=== PATIENT | male | born 1995 | race Caucasian/White ===

== ENCOUNTER 2016-09-03 19:08 | Observation (INO) | payer OTHER ==
[~2016-09-03] VITALS: Ht 175.3 cm; Wt 75.0 kg
[2016-09-03 21:17] LABS: BASO % 0.3 % (0.0-2.0); EOS % 0.2 % (0-4.0); GRAN # 10.7 (1.4-6.5); GRAN % 78.2 % (42.2-75.2); HEMATOCRIT 47.1 % (36.0-47.0); HEMOGLOBIN 16.4 g/dl (12.5-16.1); LYMPH # 1.3 (1.2-3.4); LYMPH % 9.4 % (20.0-51.0); MEAN CELL VOLUME 86 fl (80.0-95.0); MEAN CORPUSCULAR HEMOGLOBIN 30 pg (26.0-32.0); MEAN CORPUSCULAR HGB CONC 35 g/dl (33.0-37.0); MEAN PLATELET VOLUME 9.9 fl (7.4-10.4); MONO # 1.6 (0.1-0.6); MONO % 11.7 % (1.7-9.3); PLATELET COUNT 262 K/mm3 (130-400); RED BLOOD COUNT 5.47 M/mm3 (4.20-5.60); REDCELL DISTRIBUTION WIDTH-CV 11.9 % (11.5-14.5); WHITE BLOOD COUNT 13.7 K/mm3 (4.8-10.8)
[2016-09-03 21:19] LABS: PH 7 (5-8); SQUAMOUS EPITHELIAL None Seen /hpf; URINE APPEARANCE Clear; URINE BACTERIA None Seen /hpf; URINE BILIRUBIN Negative (NEGATIVE); URINE BLOOD Negative (NEGATIVE); URINE COLOR Straw; URINE GLUCOSE Negative (NEGATIVE); URINE KETONE Negative (NEGATIVE); URINE RBC None Seen /hpf; URINE UROBILINOGEN Negative (NEGATIVE); URINE WBC 0-2 /hpf
[2016-09-03 21:41] LABS: ADJUSTED CALCIUM 9.3 mg/dL (8.4-10.2); ALBUMIN 4.9 gm/dL (3.5-5.0); BILIRUBIN,TOTAL 1.9 mg/dL (0.0-1.0); CREATININE, serum 0.96 mg/dL (0.66-1.25); POTASSIUM 4.1 mmol/L (3.4-5.0); TOTAL PROTEIN 8.3 gm/dL (6.4-8.2)
[2016-09-03 23:04] VITALS: BP 131/72; PULSE 86; TEMP 99.1
[2016-09-04] VITALS (9 sets, daily range): BP systolic 102–136; BP diastolic 57–83; PULSE 59–96; TEMP 97.6–98.2
== END 2016-09-04 14:00 | disposition home or self-care (01) ==
LOC: COL.ER 19:08 → SDCO 21:55 → SURG 21:55 → SDCO 21:56 → SURG 21:56 → SDCO 09-04 14:00 → SURG 09-04 14:00
PROVIDERS: Emergency Medicine
DX: K35.80 Unspecified acute appendicitis (principal)
CPT/HCPCS: OP; G0378; J1100; J1170; J1885; J2405; J2543; J2704; J7030; J7050; J7120; Q9967

== ENCOUNTER 2017-08-31 22:10 | Emergency (ER) | payer OTHER ==
[~2017-08-31] VITALS: Ht 175.3 cm; Wt 77.3 kg
[2017-08-31 22:15] VITALS: TEMP 98.4
[2017-08-31] MEDS ORDERED: ZITHROMAX 250M250 MG PO (23:44)
[2017-08-31] MEDS ORDERED: TESSALON P100 MG/CAP PO (23:44)
[2017-09-01 00:15] VITALS: BP 136/75; PULSE 80
== END 2017-09-01 00:15 | disposition home or self-care (01) ==
LOC: COL.ER 22:10
DX: J20.9 Acute bronchitis, unspecified (principal); Z90.89 Acquired absence of other organs; Z98.890 Other specified postprocedural states

== ENCOUNTER 2018-04-18 21:27 | Emergency (ER) | payer OTHER ==
[~2018-04-18] VITALS: Ht 172.7 cm; Wt 77.3 kg
[~2018-04-18 21:27] MED LIST: TESSALON P100 MG/CAP PO; ZITHROMAX 250M250 MG PO
[2018-04-18 21:34] VITALS: TEMP 97.7
[2018-04-18] MEDS ORDERED: PREDNISONE10 MG PO (22:12)
[2018-04-18 22:31] VITALS: BP 139/80; PULSE 88
== END 2018-04-18 22:31 | disposition home or self-care (01) ==
LOC: COL.ER 21:27
DX: J45.909 Unspecified asthma, uncomplicated (principal)
CPT/HCPCS: J7512